=== PATIENT | male | born 1990 | race Caucasian/White ===

== ENCOUNTER 2019-07-05 21:43 | Emergency (ER) | payer OTHER ==
[~2019-07-05] VITALS: Ht 180.3 cm; Wt 117.9 kg
[2019-07-05 23:02] VITALS: BP 150/99
== END 2019-07-05 23:22 | disposition home or self-care (01) ==
LOC: ER 21:45
DX: J01.00 Acute maxillary sinusitis, unspecified (principal)

== ENCOUNTER 2020-01-01 18:46 | Emergency (ER) | payer SELFPAY ==
[~2020-01-01] VITALS: Ht 246.4 cm; Wt 113.4 kg
[2020-01-01 20:07] VITALS: BP 149/94
[2020-01-01] MEDS ORDERED: KETOROLAC TROMETH 60MG/2ML VIAL IM ONE (20:15)
[2020-01-01] MEDS ORDERED: HYDROcodone-ACET 5/325MG TAB PO ONE (20:15)
== END 2020-01-01 20:27 | disposition home or self-care (01) ==
LOC: ER 18:46
DX: K02.9 Dental caries, unspecified (principal); K03.81 Cracked tooth